=== PATIENT | male | born 1970 | race African-American/Black ===

== ENCOUNTER 2020-10-10 14:47 | Emergency (ER) | payer OTHER ==
[2020-10-10 14:53] VITALS: BP 157/80; PULSE 97; TEMP 98.6; BMI 50.2
[2020-10-10 16:32] LABS: BASO % 1.7 % (0-2.0); EOS % 5.8 % (0-4.5); HEMATOCRIT 27.5 % (35.4-49); HEMOGLOBIN 7.1 GM/dL (11.7-16.9); LYMPH % 22.2 % (8-40); MCHC 25.9 g/dl (32.0-35.9); MEAN CELL VOLUME 61.6 fl (80-96); MEAN PLT VOLUME 9.1 fl (7.5-11.1); MONO % 6.7 % (3.8-10.2); NEUT % 63.6 % (42.8-82.8); PLATELET COUNT 325 K/MM3 (134-434); RBC 4.47 M/mm3 (4.00-5.60); RDW 19.9 % (11.9-15.9); WHITE BLOOD COUNT 12.3 K/mm3 (4.0-10.0)
[2020-10-10 16:42] LABS: CHLORIDE 101 mmol/L (98-107); POTASSIUM 4.6 mmol/L (3.5-5.1); SODIUM 137 mmol/L (136-145)
[2020-10-10 16:44] LABS: CALCIUM 8.2 mg/dL (8.5-10.1)
[2020-10-10 16:45] LABS: ALBUMIN 3.1 g/dl (3.4-5.0); ANION GAP 1 MMOL/L (8-16); BLOOD UREA NITROGEN 10.1 mg/dL (7-18); CO2 34 mmol/L (21-32); GLUCOSE,RANDOM 130 mg/dL (74-106)
[2020-10-10 16:48] LABS: CREATININE 0.9 mg/dL (0.55-1.3); SGOT/AST 41 U/L (15-37); SGPT/ALT 14 U/L (13-61)
[2020-10-10 16:49] LABS: BILIRUBIN,TOTAL 0.2 mg/dL (0.2-1)
[2020-10-10 16:51] LABS: ALK PHOS 116 U/L (45-117)
[2020-10-10 17:10] LABS: ANISOCYTOSIS 3+; MACROCYTOSIS 1+; PLATELET ESTIMATE NORMAL
== END 2020-10-10 20:42 | disposition home or self-care (01) ==
LOC: JER 14:47
DX: D64.9 Anemia, unspecified (principal)
CPT/HCPCS: 36415; 80053; 82272; 82550; 84484; 85025; 93005; 93010; 99284-25

== ENCOUNTER 2024-09-11 20:56 | Emergency (ER) | payer OTHER ==
[2024-09-11 21:01] VITALS: BP 159/97; PULSE 95; RESP 20; TEMP 98; BMI 48.7
== END 2024-09-11 23:37 | disposition home or self-care (01) ==
LOC: JER 20:56
DX: M79.89 Other specified soft tissue disorders (principal); R06.02 Shortness of breath
CPT/HCPCS: 71046-TC-FY; 93005; 93010; 99284-25